=== PATIENT | male | born 1940 | race Hispanic/Latino ===

== ENCOUNTER 2017-05-09 13:30 | Emergency (ER) | payer MEDICARE, MEDICAID ==
[2017-05-09 13:30] VITALS: BMI 22.4
[2017-05-09 13:47] VITALS: PULSE 94; RESP 16; TEMP 99; O2SAT 98
--- NOTE | 2017-05-09 15:11 | ED PDOC ---
HPI: Skin/Bite Injury Time Seen by Provider: 05/09/17 14:11 Chief Complaint (Nursing): Abnormal Skin Integrity Chief Complaint (Provider): Rash History Per: Patient History/Exam Limitations: no limitations Onset/Duration Of Symptoms: Days (5) Current Symptoms Are (Timing): Still Present Additional Complaint(s): The patient is a 77yo male, past medical history of hypertension, CVA, TIA, presents to the ED for evaluation of a rash present on the left side of his neck , radiating to his left upper shoulder area for the past 5 days. Patient reports the rash is painful but denies any fever, discharge or itching. No additional medical complaints. Past Medical History Reviewed: Historical Data, Nursing Documentation, Vital Signs Vital Signs: Last Vital Signs Temp 99.0 F 05/09/17 13:44 Pulse 94 H 05/09/17 13:44 Resp 16 05/09/17 13:44 BP Pulse Ox 98 05/09/17 15:14 - Medical History PMH: Arthritis, CAD, CVA (5 years ago), HTN, TIA Denies: CHF, COPD, HIV, Hypercholesterolemia, Hypothyroidism, Chronic Kidney Disease, Rheumatoid Arthritis - Family History Family History: States: Unknown Family Hx - Home Medications Home Medications: Ambulatory Orders Medication Instructions Recorded Aspirin [Aspirin Chewable] 81 mg PO DAILY #0 chew 06/10/16 Atorvastatin [Lipitor] 40 mg PO HS #0 tab 06/10/16 Clopidogrel [Plavix] 75 mg PO DAILY #0 tab 06/10/16 Cyanocobalamin [Vitamin B12 1000 1,000 mcg PO DAILY #0 tab 06/10/16 mcg Tab] Docusate [Colace] 1 cap PO PRN PRN #0 cap 06/10/16 Famotidine [Pepcid] 1 tab PO DAILY #0 tab 06/10/16 Lisinopril [Zestril] 20 mg PO DAILY #0 tab 06/10/16 Acetaminophen with Codeine 1 tab PO Q6H PRN #10 tab 05/09/17 [Tylenol with Codeine No. 3 300 mg-30 mg] Prednisone 50 mg PO DAILY #4 tablet 05/09/17 Valacyclovir HCl [Valtrex] 1 gm PO Q8H #21 tablet 05/09/17 - Allergies Allergies/Adverse Reactions: Allergies Allergy/AdvReac Type Severity Reaction Status Date / Time No Known Allergies Allergy Verified 06/10/16 14:50 Review of Systems ROS Statement: Except As Marked, All Systems Reviewed And Found Negative Skin: Positive for: Rash Physical Exam - Reviewed Nursing Documentation Reviewed: Yes Vital Signs Reviewed: Yes - Physical Exam Appears: Positive for: Well, Non-toxic Head Exam: Positive for: ATRAUMATIC, NORMAL INSPECTION, NORMOCEPHALIC Skin: Positive for: Rash (vesicular rash in different stages present on left C- 4 region) Cardiovascular/Chest: Positive for: Regular Rate, Rhythm Respiratory: Positive for: Normal Breath Sounds. Negative for: Respiratory Distress Neurologic/Psych: Positive for: Alert, Oriented - ECG O2 Sat by Pulse Oximetry: 98 (RA) Pulse Ox Interpretation: Normal Medical Decision Making Medical Decision Making: Time: 1410 Impression: Vesicular rash Plan: -- Prednisone 50 mg PO Reassess Time: 1515 Patient reports feeling better, stable for discharge home. Scribe Attestation: Documented by Mayda Donato acting as a scribe for Vi Aguirre MD. Provider Attestation: All medical record entries made by the Scribe were at my direction and personally dictated by me. I have reviewed the chart and agree that the record accurately reflects my personal performance of the history, physical exam, medical decision making, and the department course for this patient. I have also personally directed, reviewed, and agree with the discharge instructions and disposition. Disposition - Clinical Impression Clinical Impression: Herpes zoster - Disposition Disposition: Routine/Home Disposition Time: 14:38 Condition: STABLE Additional Instructions: FOLLOW-UP WITH PMD WITHIN 2 DAYS FOR REEVALUATION. Prescriptions: Acetaminophen with Codeine [Tylenol with Codeine No. 3 300 mg-30 mg] 1 tab PO Q6H PRN #10 tab PRN Reason: Pain, Severe (8-10) Prednisone 50 mg PO DAILY #4 tablet Valacyclovir HCl [Valtrex] 1 gm PO Q8H #21 tablet Instructions: Shingles (ED) Forms: [employer] (Croatian)
== END 2017-05-09 15:28 | disposition home or self-care (01) ==
LOC: H.ER 13:30
DX: B02.9 Zoster without complications (principal); I10 Essential (primary) hypertension; I25.10 Atherosclerotic heart disease of native coronary artery without angina pectoris; Z86.73 Personal history of transient ischemic attack (TIA), and cerebral infarction without residual deficits

== ENCOUNTER 2018-01-16 18:50 | Emergency (ER) | payer MEDICARE, MEDICAID ==
[2018-01-16 18:50] VITALS: BMI 22.4
[2018-01-16 19:08] VITALS: RESP 20; TEMP 97.9; O2SAT 98
--- NOTE | 2018-01-16 20:21 | ED PDOC ---
HPI: Trauma/Fall - HPI Time Seen by Provider: 01/16/18 19:05 Chief Complaint (Nursing): Upper Extremity Problem/Injury Chief Complaint (Provider): fall type injury History Per: Family Onset/Duration Of Symptoms: Hrs Injury Occurred (Timing): Hours Ago: (8) Location Of Injury: Left: Hand Additional Complaint(s): 77yo male with history of CVA, [place], hypertension, brought to ED for evaluation after he had a fall and subsequent injury at 10:30 this morning. 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 Patient currently denies any fall, and states he hurt his hand on the sofa. He denies any headache, chest pain, weakness. He denies any other medical complaints. PCP: Dr. Tovar Past Medical History Reviewed: Historical Data, Nursing Documentation, Vital Signs Vital Signs: Last Vital Signs Temp 97.9 F 01/16/18 19:05 Pulse 76 01/16/18 21:43 Resp 20 01/16/18 19:05 BP Pulse Ox 98 01/16/18 21:43 - Medical History PMH: Arthritis, CAD, CVA (5 years ago), HTN, TIA Denies: CHF, COPD, HIV, Hypercholesterolemia, Hypothyroidism, Chronic Kidney Disease, Rheumatoid Arthritis - Surgical History Surgical History: No Surg Hx - Family History Family History: States: No Known Family Hx, Unknown Family Hx - Home Medications Home Medications: Ambulatory Orders Medication Instructions Recorded Aspirin [Aspirin Chewable] 81 mg PO DAILY #0 chew 06/10/16 Atorvastatin [Lipitor] 40 mg PO HS #0 tab 06/10/16 Clopidogrel [Plavix] 75 mg PO DAILY #0 tab 06/10/16 Cyanocobalamin [Vitamin B12 1000 1,000 mcg PO DAILY #0 tab 06/10/16 mcg Tab] Docusate [Colace] 1 cap PO PRN PRN #0 cap 06/10/16 Famotidine [Pepcid] 1 tab PO DAILY #0 tab 06/10/16 Lisinopril [Zestril] 20 mg PO DAILY #0 tab 06/10/16 Acetaminophen with Codeine 1 tab PO Q6H PRN #10 tab 08/07/17 [Tylenol with Codeine No. 3 300 mg-30 mg] Prednisone 50 mg PO DAILY #4 tablet 05/09/17 Valacyclovir HCl [Valtrex] 1 gm PO Q8H #21 tablet 05/09/17 - Allergies Allergies/Adverse Reactions: Allergies Allergy/AdvReac Type Severity Reaction Status Date / Time No Known Allergies Allergy Verified 06/10/16 14:50 Review of Systems ROS Statement: Except As Marked, All Systems Reviewed And Found Negative (as per HPI) Cardiovascular: Negative for: Chest Pain Musculoskeletal: Positive for: Hand Pain (left hand injury) Neurological: Negative for: Weakness, Headache Physical Exam - Reviewed Nursing Documentation Reviewed: Yes Vital Signs Reviewed: Yes - Physical Exam Head Exam: Positive for: ATRAUMATIC, NORMAL INSPECTION, NORMOCEPHALIC Skin: Positive for: Warm, Dry Eye Exam: Positive for: EOMI, PERRL ENT: Positive for: Other (minor abrasion right upper neck and mandible; the area is non-tender and tehre is no hematoma or ecchymosis) Neck: Positive for: Painless ROM, Supple Cardiovascular/Chest: Positive for: Regular Rate, Rhythm. Negative for: Murmur Respiratory: Positive for: Normal Breath Sounds. Negative for: Wheezing Gastrointestinal/Abdominal: Positive for: Soft. Negative for: Tenderness Back: Positive for: Normal Inspection. Negative for: Decreased ROM Extremity: Positive for: Capillary Refill (< 2 seconds), Other (large hematoma on dorsum of left hand with mild tenderness and abrasion to the head of the 4th metacarpal; light touch sensations intact) Lymphatic: Negative for: Adenopathy Neurologic/Psych: Positive for: Alert, Oriented ( x 2), Facial Droop (left sided , reported as old) - Laboratory Results Result Diagrams: 01/16/18 20:50 01/16/18 20:50 Urine dip results: Positive for: Blood (trace), Protein (trace). Negative for: Leukocyte Esterase, Nitrate, Ketones, Glucose, Bilirubin - ECG ECG: Positive for: Interpreted By Me, Viewed By Me Interpretation Of ECG: Sinus rhythm Low voltage QRS No ST elevation Diffuse flat T-waves Rate: 76 O2 Sat by Pulse Oximetry: 98 (RA) Pulse Ox Interpretation: Normal Medical Decision Making Medical Decision Making: Impression: Fall, left hand injury, head injury Plan: -- XR Left Hand -- CT Head w/o contrast -- Labs Time: 2104 CT Head FINDINGS: Brain: Moderate atrophy. No intracranial hemorrhage. 1.7 x 0.7 x 0.6 cm extra- axial mass along left parietal convexity, similar to minimally increased in size. Mild encephalomalacia within left cerebellum. Minimal decreased attenuation within periventricular white matter. No edema. Ventricles: No hydrocephalus. Bones/joints: No acute fracture. Soft tissues: Unremarkable. Vasculature: Minimal atherosclerotic disease. Sinuses: Scattered minimal mucosal thickening. Mastoid air cells: No mastoid effusion. Orbits: Unremarkable as visualized. IMPRESSION: 1. No intracranial hemorrhage. 2. Nonspecific white matter changes. 3. Extraaxial mass, likely meningioma. Suggest nonemergent contrast enhanced MRI. 4. Incidental/non-acute findings are described above. Time: 2119 XR left hand reviewed by provider indicates no fractures or dislocations. No clinically significant lab abnormalities. Stable for dc. DW [id number] findings and plan of care. Scribe Attestation: Documented by Mayda Donato acting as a scribe for Meera Isabel MD. Provider Attestation: All medical record entries made by the Scribe were at my direction and personally dictated by me. I have reviewed the chart and agree that the record accurately reflects my personal performance of the history, physical exam, medical decision making, and the department course for this patient. I have also personally directed, reviewed, and agree with the discharge instructions and disposition. Disposition - Clinical Impression Clinical Impression: Cut of hand, Hand contusion, Fall at home, Minor head injury Counseled Patient/Family Regarding: Studies Performed, Diagnosis, Need For Followup - Disposition Referrals: Forest Coleman MD [Medical Doctor] - (FOLLOW UP WITH DR COLEMAN BY THE END OF THE WEEK) Disposition: Routine/Home Disposition Time: 22:15 Condition: GOOD Instructions: Preventing Falls in the Older Adult, Minor Head Injury (DC), Contusion (DC) Forms: [email or web address] (Estonian)
[2018-01-16 20:58] VITALS: PULSE 76
[2018-01-16 21:02] LABS: BASO # 0.1 K/uL (0.0-0.2); BASO % 1.2 % (0.0-2.0); EOS % 0.5 % (0.0-4.0); HEMOGLOBIN 13.3 g/dL (12.0-18.0); LYMPH # 1.8 K/uL (1.0-4.3); LYMPH % 26.9 % (20.0-40.0); MEAN CELL VOLUME 67.1 fl (80.0-94.0); MEAN CORPUSCULAR HEMOGLOBIN 21.1 pg (27.0-31.0); MEAN CORPUSCULAR HGB CONC 31.5 g/dL (33.0-37.0); MEAN PLATELET VOLUME 9.5 fl (7.2-11.7); MONO # 0.5 K/uL (0.0-0.8); NEUT # 4.2 K/uL (1.8-7.0); NEUT % 63.4 % (50.0-75.0); NRBC % 0.1 % (0.0-0.0); RBC 6.31 Mil/uL (4.40-5.90); RED CELL DISTRIBUTION WIDTH 16.1 % (11.5-14.5); WHITE BLOOD COUNT 6.6 K/uL (4.8-10.8)
--- NOTE | 2018-01-16 21:05 | CT ---
EXAM: CT Head Without Intravenous Contrast CLINICAL HISTORY: 77 years old, male; Injury or trauma; Fall; Initial encounter; Blunt trauma (contusions or hematomas); Additional info: Head injury TECHNIQUE: Axial computed tomography images of the head/brain without intravenous contrast. All CT scans at this facility use one or more dose reduction techniques, viz.: automated exposure control; ma/kV adjustment per patient size (including targeted exams where dose is matched to indication; i.e. head); or iterative reconstruction technique. Coronal and sagittal reformatted images were created and reviewed. COMPARISON: CT - HEAD W/O CONTRAST 2016-01-17 22:28 FINDINGS: Brain: Moderate atrophy. No intracranial hemorrhage. 1.7 x 0.7 x 0.6 cm extra-axial mass along left parietal convexity, similar to minimally increased in size. Mild encephalomalacia within left cerebellum. Minimal decreased attenuation within periventricular white matter. No edema. Ventricles: No hydrocephalus. Bones/joints: No acute fracture. Soft tissues: Unremarkable. Vasculature: Minimal atherosclerotic disease. Sinuses: Scattered minimal mucosal thickening. Mastoid air cells: No mastoid effusion. Orbits: Unremarkable as visualized. IMPRESSION: 1. No intracranial hemorrhage. 2. Nonspecific white matter changes. 3. Extraaxial mass, likely meningioma. Suggest nonemergent contrast enhanced MRI. 4. Incidental/non-acute findings are described above.
[2018-01-16 21:12] LABS: ALB/GLOB RATIO 1.2 (1.0-2.1); ALBUMIN 3.5 g/dL (3.5-5.0); AST/SGOT 17 U/L (17-59); BLOOD UREA NITROGEN 18 mg/dl (9-20); GFR AFRICAN-AMERICAN > 60; GFR NON-AFRICAN AMERICAN > 60
[2018-01-16] MEDS ORDERED: Bacitracin 500 Units/gm Oint Foilpak UD TOP STA (21:12)
[2018-01-16] MEDS ORDERED: Tdap Vaccine 0.5 ml Vial (10-64 yrs) IM ONE ×2 (21:13→22:47)
[2018-01-16 21:18] LABS: PARTIAL THROMBOPLASTIN TIME 30.5 Seconds (25.6-37.1); PROTHROMBIN TIME 11.6 Seconds (9.8-13.1)
[2018-01-16 21:38] LABS: ALT/SGPT 41 U/L (21-72); CALCIUM 8.5 mg/dL (8.4-10.2)
[2018-01-16 23:51] VITALS: BP 130/72
--- NOTE | 2018-01-17 07:36 | CARD ---
APPROVED REPORT EKG Measurement Heart [id number] <Conclusion> Normal sinus rhythm Low voltage QRS Left anterior fascicular block Cannot rule out Anterior infarct, age undetermined Abnormal ECG
--- NOTE | 2018-01-17 13:27 | RAD ---
PROCEDURE: Left Hand Radiographs. HISTORY: trauma LEFT hand COMPARISON: None. FINDINGS: BONES: No acute fractures. Juxta-articular osteopenia without significant erosive changes likely reflects mild osteoarthritis. JOINTS: Osteoarthritic changes, mild. SOFT TISSUES: Soft tissue swelling about the digits and dorsal aspect of the hand. OTHER FINDINGS: None. IMPRESSION: Soft tissue swelling without acute articular or osseous abnormality.
== END 2018-01-16 23:00 | disposition home or self-care (01) ==
LOC: EDBD 18:50 → H.ER 18:50
DX: S60.222A Contusion of left hand, initial encounter (principal); S09.90XA Unspecified injury of head, initial encounter; S61.412A Laceration without foreign body of left hand, initial encounter; I10 Essential (primary) hypertension; I25.10 Atherosclerotic heart disease of native coronary artery without angina pectoris; Z79.82 Long term (current) use of aspirin; Z86.73 Personal history of transient ischemic attack (TIA), and cerebral infarction without residual deficits; W19.XXXA Unspecified fall, initial encounter